=== PATIENT | female | born 1965 | race Asian ===

== ENCOUNTER 2017-10-09 11:23 | Emergency (ER) | payer BC ==
[2017-10-09 11:29] VITALS: BMI 26.4
--- NOTE | 2017-10-09 12:20 | PDOC ---
History of Present Illness <Glenys Reyesan - Last Filed: 10/09/17 16:49> - History of Present Illness Initial Comments: 10/09/17 12:17 Patient is a 52 y.o. female with a PMH of HTN and DLD who presents c/o 2 day h/ o R sided parasternal (above L breast) chest pain that she is unable to qualify but notes it is constant, non-radiating, non-pleuritic. Patient cannot identify any tirggering or relieving factors and does not recall what she was doing when the pain started. Patient denies any associated shortness of breath , lightheadedness, diaphoresis, fever, chills, nausea, vomiting, diarrhea/ constipation. NKDA Surgical: none Social: denies cigarettes, denies alcohol, denies recreational drugs PMD: Dr. Espinoza <Lauren Green - Last Filed: 10/09/17 19:36> - General Chief Complaint: Chest Pain Stated Complaint: CHEST PAIN Time Seen by Provider: 10/09/17 11:43 Past History <Joe Reyes - Last Filed: 10/09/17 16:49> - Past Medical History COPD: No GI Disorders: Yes (acjid reflux) HTN: Yes Hypercholesterolemia: Yes - Suicide/Smoking/Psychosocial Hx Smoking History: Never smoked <Lauren Green - Last Filed: 10/09/17 19:36> - Past Medical History Allergies/Adverse Reactions: Allergies Allergy/AdvReac Type Severity Reaction Status Date / Time No Known Allergies Allergy Verified 10/09/17 11:24 Home Medications: Ambulatory Orders Aspirin [ASA -] 81 mg PO DAILY 10/09/17 Famotidine [Pepcid] 20 mg PO DAILY 10/09/17 Losartan Potassium 100 mg PO DAILY 10/09/17 Metoprolol Succinate [Toprol Xl -] 25 mg PO HS 10/09/17 Review of Systems - Review of Systems Constitutional: No: Chills, Fever Respiratory: No: Cough, Shortness of Breath Cardiac (ROS): Yes: Chest Pain. No: Edema, Lightheadedness, Palpitations ABD/GI: No: Constipated, Diarrhea, Nausea, Vomiting All Other Systems: Reviewed and Negative <Lauren Green - Last Filed: 10/09/17 19:36> *Physical Exam - Vital Signs Last Vital Signs Temp Pulse Resp BP Pulse Ox 50 L 18 139/81 100 10/09/17 16:15 10/09/17 16:15 10/09/17 16:15 10/09/17 16:15 <Joe Reyes - Last Filed: 10/09/17 16:49> - Vital Signs Last Vital Signs Temp Pulse Resp BP Pulse Ox 61 20 145/107 100 10/09/17 11:24 10/09/17 11:24 10/09/17 11:24 10/09/17 11:24 - Physical Exam Neck: positive: Trachea midline, Supple Respiratory/Chest: positive: Lungs Clear, Normal Breath Sounds. negative: Accessory Muscle Use, Labored Respiration, Crackles, Rales, Rhonchi, Stridor, Wheezing Cardiovascular: positive: S1, S2 Gastrointestinal/Abdominal: positive: Normal Bowel Sounds, Flat, Soft. negative : Tenderness, Hernia, Mass Integumentary: positive: Normal Color, Dry, Warm Neurologic: positive: Fully Oriented, Alert <Lauren Green - Last Filed: 10/09/17 19:36> ED Treatment Course - LABORATORY CBC & Chemistry Diagram: 10/09/17 12:24 10/09/17 12:24 - ADDITIONAL ORDERS Additional order review: Laboratory Results 10/09/17 10/09/17 16:15 12:24 Sodium 142 Potassium 4.6 Chloride 106 Carbon Dioxide 30 Anion Gap 6 L BUN 14 D Creatinine 0.9 Creat Clearance w eGFR > 60 Random Glucose 89 Calcium 9.3 Total Bilirubin 0.8 AST 20 ALT 31 Alkaline Phosphatase 96 Creatine Kinase 158 Creatine Kinase Index 0.7 CK-MB (CK-2) 1.235 Troponin I < 0.02 < 0.02 Total Protein 7.5 Albumin 4.0 Lipase 151 10/09/17 12:24 RBC 5.16 MCV 83.8 MCHC 32.5 RDW 13.8 MPV 8.5 Neutrophils % 53.0 Lymphocytes % 38.4 Monocytes % 6.3 Eosinophils % 1.2 Basophils % 1.1 - Medications Given in the ED: ED Medications Discontinued Medications Generic Name Dose Route Start Last Admin Trade Name Freq PRN Reason Stop Dose Admin Ketorolac Tromethamine 30 mg 10/09/17 14:28 10/09/17 14:29 Toradol Injection - IVPUSH 10/09/17 14:29 30 mg NOW ONE Administration <Ou,Joe - Last Filed: 10/09/17 16:49> - LABORATORY CBC & Chemistry Diagram: 10/09/17 12:24 10/09/17 12:24 <Lauren Green - Last Filed: 10/09/17 19:36> Medical Decision Making - Medical Decision Making 10/09/17 12:20 Patient is a 52 y.o. female who presents w/ 2 day h/o chest pain. Initial DDx is costochondritis (not reproducible with palpation, however exacerbated w/ palpation) vs. ACS (eructation as anginal equivalent, however negative stress testing in 2016). PLAN: 1. CBC, CMP, Troponin 2. CXR Reassess 10/09/17 14:10 Troponin (-), will repeat Troponin @ 4 hour josé. Patient resting comfortably, hemodynamically stable. 10/09/17 19:34 Repeat Troponin (-). Pain likely muskoskeletal given patient's pain significantly relieved with NSAID. Patient discharged home with return precautions and instruction to return to PCP. <Lauren Green - Last Filed: 10/09/17 19:36> *DC/Admit/Observation/Transfer <Joe Reyes - Last Filed: 10/09/17 16:49> <Lauren Green - Last Filed: 10/09/17 19:36> Diagnosis at time of Disposition: Chest pain - Discharge Dispostion Disposition: HOME - Referrals Referrals: Winston Espinoza MD [Primary Care Provider] - Uvaldo Nuñez MD [Staff Physician] - - Patient Instructions Printed Discharge Instructions: DI for Atypical Chest Pain Additional Instructions: Please understand that no ER visit is complete without re-evaluation. Call your primary doctor as soon as possible to make a follow up appointment within 48 hours. You will need a referral to a cost recovery technician for further evaluation of your chest pain. If you experience any worsening symptoms, chest pain, shortness of breath, or any other concerning symptoms, return to the ER immediately. - Post Discharge Activity
[2017-10-09 12:27] LABS: BASOPHIL 1.1 % (0-2.0); EOSINOPHIL 1.2 % (0-4.5); MCH 27.3 pg (25.7-33.7); MCHC 32.5 g/dl (32.0-36.0); MEAN CELL VOLUME 83.8 fl (80-96); MEAN PLT VOLUME 8.5 fl (7.5-11.1); PLATELET COUNT 199 K/MM3 (134-434); RDW 13.8 % (11.6-15.6); WHITE BLOOD COUNT 4.2 K/mm3 (4.0-10.0)
[2017-10-09 12:59] LABS: ANION GAP 6 (8-16); BILIRUBIN,TOTAL 0.8 mg/dL (0.2-1.0); CALCIUM 9.3 mg/dL (8.5-10.1); CO2 30 mmol/L (21-32); CREATININE 0.9 mg/dL (0.55-1.02); GLUCOSE,RANDOM 89 mg/dL (74-106); SGOT/AST 20 U/L (15-37); SGPT/ALT 31 U/L (12-78); TOT PROT 7.5 g/dl (6.4-8.2)
[2017-10-09 13:01] LABS: ALK PHOS 96 U/L (45-117); CPK 158 IU/L (26-192); TROPONIN I < 0.02 ng/ml (0.00-0.05)
--- NOTE | 2017-10-09 13:37 | PDOC ---
Attending Attestation - Resident Resident Name: Lauren Green - ED Attending Attestation I have performed the following: I have examined & evaluated the patient, The case was reviewed & discussed with the resident, I agree w/resident's findings & plan, Exceptions are as noted - HPI HPI: 10/09/17 13:33 52 F with h/o HTN, HLD presents to ER with L sided chest pain x 2 days. Pt reports non-radiating, non-pleuritic, non-exertional chest pain. She denies SOB. Denies N/V. She denies any association of the pain with food. Denies abdominal pain. Pt reports she had a stress test 1 year ago that was normal. Denies any lower extremity swelling or calf pain. Denies recent travel/immobilization. Denies h/ o DVT. Denies OCP or estrogen use. No F/C. No COVARRUBIAS. No cough. - Physicial Exam PE: 10/09/17 13:34 "GENERAL: Awake, alert, and fully oriented, in no acute distress HEAD: No signs of trauma EYES: PERRLA, EOMI, sclera anicteric, conjunctiva clear ENT: Auricles normal inspection, hearing grossly normal, nares patent, oropharynx clear without exudates. Moist mucosa NECK: Normal ROM, supple, no lymphadenopathy, JVD, or masses LUNGS: Breath sounds equal, clear to auscultation bilaterally. No wheezes, and no crackles HEART: Regular rate and rhythm, normal S1 and S2, no murmurs, rubs or gallops ABDOMEN: Soft, nontender, normoactive bowel sounds. No guarding, no rebound. No masses EXTREMITIES: Normal range of motion, no edema. No clubbing or cyanosis. No cords, erythema, or tenderness NEUROLOGICAL: Cranial nerves II through XII grossly intact. Normal speech, normal gait SKIN: Warm, Dry, normal turgor, no rashes or lesions noted. " - Medical Decision Making 10/09/17 13:35 52 F with atypical L sided chest pain. ACS unlikely given normal EKG, but will r /o with trops. Pt with no PE risk factors. Does not PERC out due to age but has a wells score of 0. This, in conjunction with her normal vitals, makes PE very unlikely. Pt with no abdominal pain to suggest GI etiology. - Labs, trop, lipase - CXR 10/09/17 16:48 Trop negative x2. Pt with HEART score 2. No indication for admission at this time. Pt reassessed. Feels significantly better with toradol. Denies CP at this time. Pt well appearing with normal vitals. Stable for DC. I discussed the physical exam findings, ancillary test results and final diagnoses with the patient. I answered all of the patient's questions. The patient was satisfied with the care received and felt comfortable with the discharge plan and treatment plan. The patient agrees to follow up with the primary care physician within 24-72 hours. Heart Score/ECG Review - History History: Slightly suspicious - Electrocardiogram EKG: Normal - Age Age: 45-65 - Risk Factors Risk Factors Heart Score: Yes Hx Hypercholesterolemia, Yes Hx Hypertension Based on the list above the patient has:: 1-2 risk factors - Troponin Troponin: </= normal limit - Score Heart Score - Total: 2 - ECG Impressions Comment:: 10/09/17 13:35 NSR, no DEBRA/STDs, no TWIs, axis wnl, intervals wnl
[2017-10-09] MEDS ORDERED: KETOROLAC TROMETHAMINE 30 MG/1 ML VIAL ONE (14:15)
[2017-10-09] MEDS ORDERED: KETOROLAC TROMETHAMINE 30 MG/1 ML VIAL IVPUSH ONE (14:28)
[2017-10-09 16:16] VITALS: BP 139/81; PULSE 50
--- NOTE | 2017-10-10 15:34 | EKG ---
Test Reason : Blood Pressure : / mmHG Vent. Rate : 063 BPM Atrial Rate : 063 BPM P-R Int : 168 ms QRS Dur : 066 ms QT Int : 406 ms P-R-T Axes : 024 023 063 degrees QTc Int : 415 ms NORMAL SINUS RHYTHM CANNOT EXCLUDE SEPTAL INFARCT , AGE UNDETERMINED ABNORMAL ECG NO PREVIOUS ECGS AVAILABLE CLINICAL CORRELATION IS RECOMMENDED AND FOLLOWUP EKG INDICATED Confirmed by CLIFTON BURCIAGA MD ([id number]) on 10/10/2017 3:34:37 PM Referred By: Confirmed By:CLIFTON BURCIAGA MD
== END 2017-10-09 17:18 | disposition home or self-care (01) ==
LOC: JER 11:23
PROC: 3E0333Z Introduction of Anti-inflammatory into Peripheral Vein, Percutaneous Approach (ICD-10-PCS; principal; 2017-10-09)
DX: R07.89 Other chest pain (principal); I10 Essential (primary) hypertension; E78.00 Pure hypercholesterolemia, unspecified; K21.9 Gastro-esophageal reflux disease without esophagitis; Z79.82 Long term (current) use of aspirin
CPT/HCPCS: 36415; 71020-TC; 80053; 82550; 82553; 83690; 84484; 85025; 93005; 93010; 99284-25